=== PATIENT | male | born 1985 | race Two or more races ===

== ENCOUNTER 2023-02-14 13:33 | Emergency (ER) | payer OTHER ==
[~2023-02-14] VITALS: Ht 177.8 cm; Wt 117.0 kg
[2023-02-14 13:44] VITALS: O2SAT 100
[2023-02-14] MEDS ORDERED: trazodone (13:44)
[2023-02-14] MEDS ORDERED: MAGNESIUM/ALUMINUM HYDROXIDE/SIMETHICONE 30ML UDC PO ONE (14:15)
[2023-02-14] MEDS ORDERED: KETOROLAC 60MG/2ML VIAL IM ONE (14:15)
[2023-02-14 14:47] LABS: CHLORIDE 103 mEq/L (98-107); INDEX HEMOLYSI 1 (1-3); INDEX ICTERIC 1 (1-4); INDEX LIPEMIC 1 (1-3); POTASSIUM 4.1 mEq/L (3.5-5.1); SODIUM 136 mEq/L (136-145)
[2023-02-14 14:49] LABS: HEMATOCRIT. 50.6 % (42.0-52.0); HEMOGLOBIN. 17.1 g/dL (14.0-18.0); MEAN CORPUSCULAR HEMOGLOBIN 31.1 pg (28.0-32.0); MEAN CORPUSCULAR HGB CONC 33.8 g/dL (31.0-37.0); PLATELET 268 x1000/uL (130-400); WHITE BLOOD COUNT 17.8 x1000/uL (4.5-11.0)
[2023-02-14 14:51] LABS: DIFFERENTIAL COMMENT 1
[2023-02-14 14:55] LABS: ALANINE AMINOTRANSFERASE 34 IU/L (13-61); ALBUMIN 4.1 g/dL (3.4-5.0); ASPARTATE AMINOTRANSFERASE 23 IU/L (15-37); BILIRUBIN TOTAL 0.8 mg/dL (0.1-1.0); CALCIUM 9.1 mg/dL (8.5-10.1); CARBON DIOXIDE 27 mEq/L (21-32); GLUCOSE 143 mg/dL (70-105); UREA NITROGEN BLOOD 14 mg/dL (7-21)
[2023-02-14 15:31] LABS: PLATELET ESTIMATE NORMAL
[2023-02-14] MEDS ORDERED: KETOROLAC 15MG/ML VIAL IV ONE (18:00)
[2023-02-14] MEDS ORDERED: KETOROLAC 15MG/ML VIAL IV NR (20:00)
[2023-02-14] MEDS ORDERED: IOHEXOL-300 100 ML BOTTLE ONE ×2 (20:05→21:20)
[2023-02-14] MEDS ORDERED: ONDA4TAB11 PO (21:21)
[2023-02-14] MEDS ORDERED: LOPE2TAB26 MT (21:21)
[2023-02-14 22:22] VITALS: BP 117/62; PULSE 100; RESP 20; TEMP 98.7
== END 2023-02-14 22:24 | disposition home or self-care (01) ==
LOC: ER 13:33
DX: R10.9 Unspecified abdominal pain (principal); R19.7 Diarrhea, unspecified; F41.9 Anxiety disorder, unspecified; J45.909 Unspecified asthma, uncomplicated
CPT/HCPCS: 80053; 83690; 85025; 36415; 74177; 96374; 99285; Q9967; J1885; Z7610 ×4